=== PATIENT | male | born 1970 | race Caucasian/White ===

== ENCOUNTER 2017-02-27 15:35 | Emergency (ER) | payer OTHER, BC ==
[2017-02-27] MEDS ORDERED: SODIUM CHLORIDE 0.9% 2,000 ML IV ONE (16:07)
[2017-02-27] MEDS ORDERED: fentaNYL (PF) 50 MCG/ML 2 ML AMP IV PRN (16:07)
[2017-02-27] MEDS ORDERED: RX INFO: IV CONTRAST WAS GIVEN 1 EACH MISC MISCELLANE PRN (16:07)
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
[2017-02-27 16:33] LABS: Basophils # (A) 0.1 k/uL (0-0.2); Basophils % (A) 0 %; CH 28.4; CHCM 33.7; Eosinophils # (A) 0.1 k/uL (0-0.7); Eosinophils % (A) 1 %; HCT 48.4 % (39.0-53.0); HDW 2.48; HGB 15.6 gm/dL (13.0-17.5); Luc # (Auto) 0.11; Luc % (Auto) 1; Lymphocytes # (A) 0.9 k/uL (1.0-4.8); Lymphocytes % (A) 5 %; MCH 27.4 pg (25.0-35.0); MCHC 32.2 g/dL (31.0-37.0); MCV 84.9 fL (80.0-100.0); Mean Platelet Volume 9.5; Monocytes # (A) 0.8 k/uL (0-1.0); Monocytes % (A) 5 %; Neutrophils # (A) 15.6 k/uL (1.3-7.7); Neutrophils % (A) 89 %; RDW 14.9 % (11.5-15.5); WBC 17.5 k/uL (3.8-10.6)
[2017-02-27 16:36] LABS: ALT 67 U/L (21-72); AST 55 U/L (17-59); Alkaline Phosphatase 97 U/L (38-126); Anion Gap 10 mmol/L; Blood Urea Nitrogen 18 mg/dL (9-20); Carbon Dioxide 23 mmol/L (22-30); Chloride 105 mmol/L (98-107); Glucose 113 mg/dL (74-99); Non-African American GFR(MDRD) >60 (>60 ml/min/1.73 sqM); Potassium 4.2 mmol/L (3.5-5.1); Sodium 138 mmol/L (137-145); Total Bilirubin 0.5 mg/dL (0.2-1.3); Total Protein 6.9 g/dL (6.3-8.2)
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
--- NOTE | 2017-02-27 18:05 | XR ---
EXAMINATION TYPE: XR tibia fibula LT DATE OF EXAM: 02/27/2017 COMPARISON: NONE HISTORY: Pain TECHNIQUE: 4 views FINDINGS: There is spurring of the patella. Knee joint and ankle joint appear intact. I see no fractu re nor dislocation. IMPRESSION: No acute abnormality of the left tibia and fibula.
--- NOTE | 2017-02-27 18:06 | XR ---
EXAMINATION TYPE: XR shoulder limited LT DATE OF EXAM: 02/27/2017 COMPARISON: NONE HISTORY: Shoulder pain TECHNIQUE: Single view FINDINGS: There is an oblique fracture of the midshaft left clavicle without significant displacement . The glenohumeral joint is intact. There is no dislocation. IMPRESSION: Clavicle fracture without significant displacement.
[2017-02-27] MEDS ORDERED: MORPHINE SULFATE 10 MG/ML SYRINGE IV ONE (18:10)
[2017-02-27] MEDS ORDERED: ONDANSETRON 4 MG/2 ML VIAL IVP STA (19:27)
[2017-02-27] MEDS ORDERED: SODIUM CHLORIDE 0.9% 1,000 ML IV STA (19:29)
[2017-02-27 20:19] VITALS: BP 146/67; PULSE 92; RESP 20; TEMP 98
== END 2017-02-27 21:10 | disposition home or self-care (01) ==
LOC: EC 15:35
DX: S42.025A Nondisplaced fracture of shaft of left clavicle, initial encounter for closed fracture (principal); S01.01XA Laceration without foreign body of scalp, initial encounter; S20.219A Contusion of unspecified front wall of thorax, initial encounter; S30.1XXA Contusion of abdominal wall, initial encounter; S80.812A Abrasion, left lower leg, initial encounter; M54.5 Low back pain; D72.829 Elevated white blood cell count, unspecified; R00.0 Tachycardia, unspecified; F17.200 Nicotine dependence, unspecified, uncomplicated; V43.52XA Car driver injured in collision with other type car in traffic accident, initial encounter; Y92.410 Unspecified street and highway as the place of occurrence of the external cause
CPT/HCPCS: 36415; 93005; 80053; 83605; 85025; 73020; 73590; 72125; 70450; 71260; 74177; 99285; 12002; 96374; 96375 ×2; 96361 ×5; J2270; J2405; J3010; Q9967

== ENCOUNTER → 2017-04-29 | Outpatient (CLI) | payer BC, OTHER ==
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
== END | disposition home or self-care (01) ==
LOC: RADXRYALE 10:24
PROVIDERS: ATTEND Nurse Practitioner Family
DX: M94.0 Chondrocostal junction syndrome [Tietze] (principal)
CPT/HCPCS: 71111

== ENCOUNTER → 2018-04-02 | Outpatient (CLI) | payer BC, OTHER ==
--- NOTE | 2018-04-02 16:29 | XR ---
EXAMINATION TYPE: XR sinus DATE OF EXAM: 04/02/2018 COMPARISON: None HISTORY: Sinus pressure and chronic cough TECHNIQUE: 4 views paranasal sinus study FINDINGS: Paranasal sinuses are clear. The left frontal sinus is aplastic. Sella is unremarkable. IMPRESSION: 1. Normal paranasal sinuses.
== END | disposition home or self-care (01) ==
LOC: RADXRYALE 12:17
PROVIDERS: ATTEND Nurse Practitioner Family
DX: R05 Cough (principal)
CPT/HCPCS: 70220

== ENCOUNTER → 2018-07-12 | Outpatient (CLI) | payer BC, OTHER ==
--- NOTE | 2018-07-12 15:32 | US ---
EXAMINATION TYPE: US abdomen comp/pelvis limited DATE OF EXAM: 07/12/2018 COMPARISON: CT 2017 CLINICAL HISTORY: R10.813 Right lower quadrant abdominal tenderness. EXAM MEASUREMENTS: Liver Length: 22.4 cm Gallbladder Wall: 0.2 cm CBD: 0.5 cm Spleen: 12.1 cm Right Kidney: 13.7 x 8.2 x 7.7 cm Left Kidney: 15.1 x 6.2 x 7.5 cm Post Void Residual: 17.6 mL Pancreas: Obscured by bowel gas Liver: Increased attenuation, partially obscured by bowel gas. Gallbladder: No stones seen CBD: wnl Spleen: No obvious pathology Right Kidney: No hydronephrosis or masses seen Left Kidney: No hydronephrosis or masses seen Upper IVC: difficult to visualize Abd Aorta: difficult to visualize, no obvious AAA Bladder: wnl Bilateral Jets Seen Yes Normal Post Void Residual (normal less than 50ml) Yes Sub optimal visualization overall d/t large patient size and overlying bowel gas. IMPRESSION: 1. Exam limited due to bowel gas. 2. No acute abdominal ultrasound abnormalities. 3. Moderate fatty infiltration to the liver.
== END | disposition home or self-care (01) ==
LOC: RADUSWWP 12:31
PROVIDERS: ATTEND Family Medicine
DX: K76.0 Fatty (change of) liver, not elsewhere classified (principal); R10.813 Right lower quadrant abdominal tenderness; R30.0 Dysuria; R19.00 Intra-abdominal and pelvic swelling, mass and lump, unspecified site
CPT/HCPCS: 76700; 76857